=== PATIENT | male | born 2000 | race African-American/Black ===

== ENCOUNTER 2019-01-27 23:51 | Emergency (ER) | payer MEDICAID ==
[2019-01-28] MEDS ORDERED: PROPARACAINE 0.5% OPHTH DROPS 15 ML EACHEYE STA (01:57)
--- NOTE | 2019-01-28 02:31 | ED Physician Documentation ---
History of Present Illness - Stated complaint Stated Complaint: LEFT EYE ISSUES - Chief complaint Chief Complaint: Heent - Additonal information Additional information: This is a 18-year-old male who presents with some irritation of his left eye. Patient states that 2 days ago he woke up and he had a feeling of irritation in his eye. This is worsened over the last several days. He feels like there is some grittiness/burning of the surface of the eye. Said a small amount of discharge from the eye. He denies any known trauma to the eye, denies any obvious time when he had a foreign body into the eye. His vision overall seems similar Usual. He is a contact lens wear and he is continued to wear his contact lenses. He denies any history of glaucoma, uveitis, autoimmune disease, or other eye problems in himself or his family. Review of Systems Constitutional: denies: Fever Eyes: reports: Irritation Nose: denies: Rhinorrhea / runny nose PD PAST MEDICAL HISTORY - Past Medical History Past Medical History: No - Past Surgical History Past Surgical History: Yes HEENT: Tonsil/Adenoidectomy - Present Medications Home Medications: Ambulatory Orders Medication Instructions Recorded Confirmed Erythromycin Base [Erythromycin 3.5 gm OP BID 7 Days #1 tube 01/28/19 Ophthalmic Ointment] levoFLOXacin 0.5% OPHTH DROPS 1 drops OPTH Q2H #1 bottle 01/28/19 [Quixin Ophth Drops] - Allergies Allergies/Adverse Reactions: Allergies Allergy/AdvReac Type Severity Reaction Status Date / Time No Known Drug Allergies Allergy Verified 01/27/19 23:56 - Social History Does the pt smoke?: Yes Smoking Status: Current every day smoker Does the pt drink ETOH?: No Does the pt have substance abuse?: No - Immunizations Immunizations are current?: Yes - POLST Patient has POLST: No PD ED PE NORMAL - Vitals Vital signs reviewed: Yes - General General: Alert and oriented X 3 - HEENT HEENT: Other (Left conjunctiva is injected. Pupils are equal, round reactive to light. Extraocular movements are normal. There are no signs of foreign body On thorough check of the eye and lid eversion. Fluorescein staining reveals small area of focal uptake on the border of the iris superiorly. Intraocular pressure is 16 in the left eye. Visual acuity is 20/25) - Cardiac Cardiac: RRR - Respiratory Respiratory: No respiratory distress - Extremities Extremities: No deformity - Neuro Neuro: Alert and oriented X 3 Results - Vitals Vitals: Vital Signs - 24 hr 01/27/19 01/28/19 01/28/19 23:54 02:16 03:14 Temperature 36.8 C Heart Rate 77 79 74 Respiratory 16 16 16 Rate Blood Pressure 159/90 H 159/95 H 145/92 H O2 Saturation 99 99 99 Oxygen O2 Source Room air PD MEDICAL DECISION MAKING - ED course Complexity details: considered differential (Conjunctivitis, corneal abrasion, allergies, uveitis, glaucoma) ED course: On exam there is a small area of uptake of fluorescein staining consistent with a small amount of corneal irritation/abrasion. There is no foreign body seen, visual acuity is excellent, and intraocular pressure is normal. He has no risk factors for uveitis, and his pain resolved with proparacaine drops, suggesting corneal pathology. Patient has been wearing his contact lenses despite the irritation of his eye, which is likely worsened the irritation/abrasion. I discussed that he should not wear his contacts until his symptoms are completely resolved, I prescribed erythromycin and levofloxacin drops for corneal abrasion, and I discussed return precautions as well as follow-up. Patient agreed to this plan and he was discharged home Departure - Departure Disposition: 01 Home, Self Care Clinical Impression: Corneal abrasion Qualifiers: Encounter type: initial encounter Laterality: left Qualified Code(s): S05.02XA - Injury of conjunctiva and corneal abrasion without foreign body, left eye, initial encounter Condition: Good Prescriptions: Erythromycin Base [Erythromycin Ophthalmic Ointment] 3.5 gm OP BID 7 Days #1 tube levoFLOXacin 0.5% OPHTH DROPS [Quixin Ophth Drops] 1 drops OPTH Q2H #1 bottle Comments: You have a mild abrasion/some irritation on the surface of your eye. Please use the antibiotic drops as directed. Before going to bed at night use the erythromycin ointment which will help keep the eye moist. If you are having increasing or not improving pain even with the antibiotic, it is very important that you return to the emergency department or see an eye doctor. If you are having worsening vision, or other concerning symptoms, return to the emergency department immediately Discharge Date/Time: 01/28/19 03:20
[2019-01-28] MEDS ORDERED: ERYTHROMYCIN OPHTH OINT 1 GM TUBE LEFTEYE STA (03:07)
[2019-01-28 03:19] VITALS: BP 145/92
== END 2019-01-28 03:20 | disposition home or self-care (01) ==
LOC: ED 23:51
DX: S05.02XA Injury of conjunctiva and corneal abrasion without foreign body, left eye, initial encounter (principal); X58.XXXA Exposure to other specified factors, initial encounter; F17.200 Nicotine dependence, unspecified, uncomplicated
CPT/HCPCS: 99282; 99283; J3490